=== PATIENT | female | born 1980 | race Two or more races ===

== ENCOUNTER 2019-12-17 17:19 | Inpatient (IN) | payer OTHER ==
[~2019-12-17 17:19] MED LIST: Bupivacaine 0.25% 10 ML SDV ONE
[2019-12-17] MEDS ORDERED: Sodium Chloride 0.9% 10 ML Syringe FLUSH PRN (17:49)
[2019-12-17] MEDS ORDERED: Ondansetron 4 MG/2 ML SDV IVPUSH PRN (17:49)
[2019-12-17] MEDS ORDERED: Oxytocin/Lactated Ringers 10 UNIT/1,000 ML BAG IV SCH ×2 (18:00)
[2019-12-17] MEDS: Lactated Ringers 1,000 ML IV SCH ×4 (18:35→23:43)
[2019-12-17] MEDS ORDERED: ePHEDrine 50 MG/ML SDV IVPUSH PRN (19:08)
[2019-12-17] MEDS ORDERED: diphenhydrAMINE 50 MG/ML SDV IVPUSH PRN (19:08)
[2019-12-17] MEDS ORDERED: Bupivacaine/fentaNYL/NS 100 ML Bag EPIDUR PRN (19:08)
[2019-12-17] MEDS ORDERED: fentaNYL 100 MCG/2 ML SDV EPIDUR PRN (19:08)
--- NOTE | 2019-12-17 19:54 | PCM.PREANE ---
Preanesthetic Assessment - Procedure Proposed Procedure: juan diego-- speaks little turkmen. 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 Consent signed. Patient agrees - Anesthesia/Transfusion/Family Hx Anesthesia History: Prior Anesthesia Without Reaction Transfusion History: No Prior Transfusion(s) - Review of Systems General: No Symptoms Pulmonary: No Symptoms Cardiovascular: No Symptoms Gastrointestinal: Abdominal Pain (contractions) Neurological: No Symptoms Other: Reports: Diabetes (gestational) - Physical Assessment Vital Signs: Last Vital Signs Temp Pulse 83 12/17/19 17:38 Resp BP 121/72 12/17/19 17:38 Pulse Ox Height: 5 ft 2.5 in Weight: 73.482 kg ASA Class: 2 Mental Status: Alert & Oriented x3 Airway Class: Mallampati = 1 Dentition: Reports: Normal Dentition Thyro-Mental Finger Breadths: 3 Mouth Opening Finger Breadths: 3 ROM/Head Extension: Full Lungs: Clear to Auscultation, Normal Respiratory Effort Cardiovascular: Regular Rate, Regular Rhythm - Lab Values: Laboratory Last Values WBC 8.17 K/mm3 (3.98-10.04) 12/17/19 18:25 RBC 4.43 M/mm3 (3.98-5.22) 12/17/19 18:25 Hgb 12.2 gm/dl (11.2-15.7) 12/17/19 18:25 Hct 37.1 % (34.1-44.9) 12/17/19 18:25 MCV 83.7 fl (79.4-94.8) 12/17/19 18:25 MCH 27.5 pg (25.6-32.2) 12/17/19 18:25 MCHC 32.9 g/dl (32.2-35.5) 12/17/19 18:25 RDW Std Deviation 46.4 fL (36.4-46.3) H 12/17/19 18:25 Plt Count 196 K/mm3 (182-369) 12/17/19 18:25 MPV 10.1 fl (9.4-12.3) 12/17/19 18:25 Neut % (Auto) 73.8 % (34.0-71.1) H 12/17/19 18:25 Lymph % (Auto) 19.7 % (19.3-51.7) 03/10/20 18:25 Ballard % (Auto) 6.0 % (4.7-12.5) 12/17/19 18:25 Eos % (Auto) 0.2 (0.7-5.8) L 12/17/19 18:25 Baso % (Auto) 0.1 % (0.1-1.2) 12/17/19 18:25 Neut # (Auto) 6.02 K/mm3 (1.56-6.13) 12/17/19 18:25 Lymph # (Auto) 1.61 K/mm3 (1.18-3.74) 12/17/19 18:25 Ballard # (Auto) 0.49 K/mm3 (0.24-0.36) H 12/17/19 18:25 Eos # (Auto) 0.02 K/mm3 (0.04-0.36) L 12/17/19 18:25 Baso # (Auto) 0.01 K/mm3 (0.01-0.08) 12/17/19 18:25 - Allergies Allergies/Adverse Reactions: Allergies Allergy/AdvReac Type Severity Reaction Status Date / Time Penicillins Allergy Hives Verified 12/17/19 17:38 - Blood Blood Available: No - Acknowledgements Anesthesia Type Planned: Epidural Pt an Appropriate Candidate for the Planned Anesthesia: Yes Alternatives and Risks of Anesthesia Discussed w Pt/Guardian: Yes Pt/Guardian Understands and Agrees with Anesthesia Plan: Yes PreAnesthesia Questionnaire - Past Health History Medical/Surgical History: Denies Medical/Surgical History Cardiovascular History: Reports: None Respiratory History: Reports: None 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: Endocrine/Metabolic History: Reports: Diabetes, Gestational - Infectious Disease History Infectious Disease History: Reports: Chicken Pox - SUBSTANCE USE Smoking Status *Q: Never Smoker Second Hand Smoke Exposure: Yes Recreational Drug Use History: No - HOME MEDS Home Medications: Home Meds Pnv No.95/Ferrous Fum/Folic AC [ Vitamin Tablet] 1 tab PO DAILY [History] - CURRENT (IN HOUSE) MEDS Current Meds: Current Medications Diphenhydramine HCl (Benadryl) 25 mg IVPUSH Q6H PRN PRN Reason: pruritis Ephedrine Sulfate (Ephedrine Sulfate) 5 mg IVPUSH ASDIRECTED PRN PRN Reason: Hypotension Fentanyl (Sublimaze) 100 mcg EPIDUR Q3H PRN PRN Reason: Pain Fentanyl/Bupivacaine HCl (Fentanyl/Bupivacaine/Ns 2 Mcg-0.125% 100 Ml) 100 ml EPIDUR ASDIRECTED PRN PRN Reason: Pain Lactated Ringer's (Ringers, Lactated) 1,000 mls @ 100 mls/hr IV ASDIRECTED EARL Last Admin: 12/17/19 18:35 Dose: 500 mls/hr Oxytocin/Lactated Ringer's (Pitocin In Lr 10 Units/1,000 Ml) 10 unit in 1,000 mls @ 12 mls/hr IV TITRATE EARL; Protocol Oxytocin/Lactated Ringer's (Pitocin In Lr 10 Units/1,000 Ml) 10 unit in 1,000 mls @ 100 mls/hr IV .CONTINUOUS EARL Ondansetron HCl (Zofran) 4 mg IVPUSH Q4H PRN PRN Reason: Nausea/Vomiting Sodium Chloride (Saline Flush) 10 ml FLUSH ASDIRECTED PRN PRN Reason: Keep Vein Open
--- NOTE | 2019-12-17 21:41 | PCM.LDHP ---
L&D History of Present Illness - General Date of Service: 12/17/19 Admit Problem/Dx: Patient Status Order with Admit Dx/Problem 12/17/19 17:49 Patient Status [ADT] Routine Admission Diagnosis/Problem Admission Diagnosis/Problem - History of Present Illness Introduction:: 39 year old female at 37w5d seen in clinic for routine visit and complaining of "too much pain". NST reveals some irregular contractions. Cervix found to be 4 and then changed to 5 cm. Sent to labor and delivery in labor. PNC with myself complicated by A1GDM. 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: Endocrine/Metabolic History: Reports: Diabetes, Gestational - Infectious Disease History Infectious Disease History: Reports: Chicken Pox Social & Family History - Family History Family Medical History: Noncontributory - Tobacco Use Smoking Status *Q: Never Smoker Second Hand Smoke Exposure: Yes - Caffeine Use Caffeine Use: Reports: None - Recreational Drug Use Recreational Drug Use: No H&P Review of Systems - Review of Systems: Review Of Systems: See Below General: Reports: No Symptoms HEENT: Reports: No Symptoms Pulmonary: Reports: No Symptoms Cardiovascular: Reports: No Symptoms Gastrointestinal: Reports: No Symptoms Genitourinary: Reports: No Symptoms Musculoskeletal: Reports: No Symptoms Skin: Reports: No Symptoms Psychiatric: Reports: No Symptoms Neurological: Reports: No Symptoms Hematologic/Lymphatic: Reports: No Symptoms Immunologic: Reports: No Symptoms L&D Exam - Exam Exam: See Below - Vital Signs Vital Signs: Last Vital Signs Temp Pulse 83 12/17/19 17:38 Resp BP 121/72 12/17/19 17:38 Pulse Ox Weight: 73.482 kg - OB Specific Fundal Height In cm: 36 Contraction Intensity: Irritability Movement: Active Heart Rate (FHR) Variability: Moderate (6-25 bmp) Presentation: Vertex - Matias Score Matias Score Cervix Position: Midposition Matias Score Consistency: Soft Matias Score Effacement: 51-70% Matias Score Dilation: > 5 cm Matias Score 's Station: -2 Matias Score Total: 9 - Exam General: Alert, Oriented HEENT: PERRLA, Conjunctiva Clear, EACs Clear, EOMI, Hearing Intact, Mucosa Moist & Rosser, Nares Patent, Normal Nasal Septum, Posterior Pharynx Clear, TMs Clear Neck: Supple, Trachea Midline Lungs: Clear to Auscultation, Normal Respiratory Effort Cardiovascular: Regular Rate, Regular Rhythm GI/Abdominal Exam: Normal Bowel Sounds, Soft, Non-Tender, No Organomegaly, No Distention, No Abnormal Bruit, No Mass, Pelvis Stable Back Exam: Normal Inspection, Full Range of Motion Extremities: Normal Inspection, Normal Range of Motion, Non-Tender, No Pedal Edema, Normal Capillary Refill Skin: Warm, Dry, Intact Neurological: Cranial Nerves Intact, Reflexes Equal Bilateral Psychiatric: Alert, Normal Affect, Normal Mood - Patient Data Lab Results Last 24 hrs: Laboratory Results - last 24 hr 12/17/19 Range/Units 18:25 WBC 8.17 (3.98-10.04) K/mm3 RBC 4.43 (3.98-5.22) M/mm3 Hgb 12.2 (11.2-15.7) gm/dl Hct 37.1 (34.1-44.9) % MCV 83.7 (79.4-94.8) fl MCH 27.5 (25.6-32.2) pg MCHC 32.9 (32.2-35.5) g/dl RDW Std Deviation 46.4 H (36.4-46.3) fL Plt Count 196 (182-369) K/mm3 MPV 10.1 (9.4-12.3) fl Neut % (Auto) 73.8 H (34.0-71.1) % Lymph % (Auto) 19.7 (19.3-51.7) % [place] % (Auto) 6.0 (4.7-12.5) % Eos % (Auto) 0.2 L (0.7-5.8) Baso % (Auto) 0.1 (0.1-1.2) % Neut # (Auto) 6.02 (1.56-6.13) K/mm3 Lymph # (Auto) 1.61 (1.18-3.74) K/mm3 [place] # (Auto) 0.49 H (0.24-0.36) K/mm3 Eos # (Auto) 0.02 L (0.04-0.36) K/mm3 Baso # (Auto) 0.01 (0.01-0.08) K/mm3 Result Diagrams: 12/17/19 18:25 Problem List Initiated/Reviewed/Updated: Yes Orders Last 24hrs: Active Orders 24 hr Category Date Time Status Patient Status [ADT] Routine ADT 12/17/19 17:49 Active Activity as Tolerated [RC] PFP Care 12/17/19 17:49 Active Communication Order [RC] ASDIRECTED Care 12/17/19 17:49 Active Heart Tones [RC] ASDIRECTED Care 12/17/19 17:50 Active Non Stress Test [RC] PER UNIT ROUTINE Care 12/17/19 17:49 Active Notify Provider [RC] ASDIRECTED Care 12/17/19 19:09 Active Notify Provider [RC] PFP Care 12/17/19 17:49 Active Notify Provider [RC] PRN Care 12/17/19 17:49 Active Peripheral IV Care [RC] Q2HR Care 12/17/19 17:50 Active Vital Signs [RC] PER UNIT ROUTINE Care 12/17/19 17:49 Active Regular Diet [DIET] Diet 12/17/19 Dinner Active RAPID PLASMA REAGIN,RPR [CHEM] Routine Lab 12/17/19 18:25 Received TYPE AND SCREEN [BBK] Stat Lab 12/17/19 18:25 Received Bupivacaine/fentaNYL/NS [fentaNYL/Bupivacaine/NS 2 MCG- Med 12/17/19 19:08 Active 0.125% 100 ML] 100 ml EPIDUR ASDIRECTED PRN Lactated Ringers [Ringers, Lactated] 1,000 ml Med 12/17/19 18:00 Active IV ASDIRECTED Ondansetron [Zofran] Med 12/17/19 17:49 Active 4 mg IVPUSH Q4H PRN Oxytocin/Lactated Ringers [Pitocin in LR 10 Units/1,000 Med 12/17/19 18:00 Active ML] 10 unit in 1,000 ml IV .CONTINUOUS Oxytocin/Lactated Ringers [Pitocin in LR 10 Units/1,000 Med 12/17/19 18:00 Active ML] 10 unit in 1,000 ml IV TITRATE Sodium Chloride 0.9% [Saline Flush] Med 12/17/19 17:49 Active 10 ml FLUSH ASDIRECTED PRN diphenhydrAMINE [Benadryl] Med 12/17/19 19:08 Active 25 mg IVPUSH Q6H PRN ePHEDrine [ePHEDrine sulfate] Med 12/17/19 19:08 Active 5 mg IVPUSH ASDIRECTED PRN fentaNYL [Sublimaze] Med 12/17/19 19:08 Active 100 mcg EPIDUR Q3H PRN Electronic Heart Tones Ext w TOCO [WOMSER] Oth 12/17/19 17:49 Ordered Routine Electronic Heart Tones Internal [WOMSER] Per Unit Oth 12/17/19 17:49 Ordered Routine Peripheral IV Insertion Adult [OM.PC] Routine Oth 12/17/19 17:49 Ordered Resuscitation Status Routine Resus Stat 12/17/19 17:49 Ordered Medication Orders Diphenhydramine HCl (Benadryl) 25 mg IVPUSH Q6H PRN PRN Reason: pruritis Ephedrine Sulfate (Ephedrine Sulfate) 5 mg IVPUSH ASDIRECTED PRN PRN Reason: Hypotension Fentanyl (Sublimaze) 100 mcg EPIDUR Q3H PRN PRN Reason: Pain Last Admin: 12/17/19 19:51 Dose: 100 mcg Fentanyl/Bupivacaine HCl (Fentanyl/Bupivacaine/Ns 2 Mcg-0.125% 100 Ml) 100 ml EPIDUR ASDIRECTED PRN PRN Reason: Pain Last Admin: 12/17/19 19:52 Dose: 100 ml Lactated Ringer's (Ringers, Lactated) 1,000 mls @ 100 mls/hr IV ASDIRECTED EARL Last Admin: 12/17/19 20:28 Dose: 500 mls/hr Infusion: 12/17/19 20:28 Dose: 500 mls/hr Admin: 12/17/19 19:53 Dose: 500 mls/hr Infusion: 12/17/19 19:53 Dose: 500 mls/hr Admin: 12/17/19 18:35 Dose: 500 mls/hr Oxytocin/Lactated Ringer's (Pitocin In Lr 10 Units/1,000 Ml) 10 unit in 1,000 mls @ 12 mls/hr IV TITRATE EARL; Protocol Oxytocin/Lactated Ringer's (Pitocin In Lr 10 Units/1,000 Ml) 10 unit in 1,000 mls @ 100 mls/hr IV .CONTINUOUS EARL Ondansetron HCl (Zofran) 4 mg IVPUSH Q4H PRN PRN Reason: Nausea/Vomiting Sodium Chloride (Saline Flush) 10 ml FLUSH ASDIRECTED PRN PRN Reason: Keep Vein Open Assessment/Plan Comment:: Term labor. AROM clear fluid. Epidural prn.
--- NOTE | 2019-12-17 21:44 | PCM.SN ---
- Free Text/Narrative Note: Stage I - Patient presented from clinic in labor. AROM clear fluid. Progressed to complete with epidural anesthesia. Stage II - of viable female, weight 2650g, 8/9 APGARS at 2109. Head delivered in controlled manner over intact perineum. Body and shoulders without difficulty. To maternal abdomen. Cord clamped and cut. Positive cry. 3vc. Pitocin initiated. Stage III - of intact placenta. Small periurethral laceration repaired with 3-0 vicryl. Small perineal laceration repaired also with 3-0. EBL 300.
[2019-12-17] MEDS ORDERED: Benzocaine/Menthol 20%-0.5% Spray 56 GM Canister TOP PRN (22:36)
[2019-12-17] MEDS ORDERED: Ibuprofen 600 MG Tab PO PRN (22:36)
[2019-12-17] MEDS ORDERED: Witch Hazel Medicated Pads 40/Jar TOP PRN (22:36)
[2019-12-17] MEDS ORDERED: Docusate Sodium 100 MG Cap PO PRN (22:36)
[2019-12-18] MEDS ORDERED: Midazolam 1 MG/ML 5 ML SDV ONE
--- NOTE | 2019-12-18 07:48 | PCM48HPAN ---
Post Anesthesia Note - EVALUATION WITHIN 48HRS OF ANESTHETIC Vital Signs in Normal Range: Yes Patient Participated in Evaluation: Yes Respiratory Function Stable: Yes Airway Patent: Yes Cardiovascular Function Stable: Yes Hydration Status Stable: Yes Pain Control Satisfactory: Yes Nausea and Vomiting Control Satisfactory: Yes Mental Status Recovered: Yes Vital Signs: Last Vital Signs Temp 36.4 C 12/18/19 03:00 Pulse 87 12/18/19 03:00 Resp 18 12/18/19 03:00 BP 110/64 12/18/19 03:00 Pulse Ox 96 12/18/19 03:00
== END 2019-12-19 10:55 | disposition still patient (30) | DRG 807 ==
LOC: JD.OBCHECK 17:19 → JD.OB 17:19 → JD.OBCHECK 17:49 → JD.OB 17:49 → JD.MS 21:09 → OBSVTOIN 21:09 → JD.OB 12-18 12:30
PROVIDERS: ADMIT Obstetrics & Gynecology; ATTEND Obstetrics & Gynecology
PROC: 10E0XZZ Delivery of Products of Conception, External Approach (ICD-10-PCS; principal; 2019-12-17)
PROC: 10907ZC Drainage of Amniotic Fluid, Therapeutic from Products of Conception, Via Natural or Artificial Opening (ICD-10-PCS; 2019-12-17)
PROC: 0UQMXZZ Repair Vulva, External Approach (ICD-10-PCS; 2019-12-17)
PROC: 3E0R3BZ Introduction of Anesthetic Agent into Spinal Canal, Percutaneous Approach (ICD-10-PCS; 2019-12-17)
DX: O70.9 Perineal laceration during delivery, unspecified (principal); Z37.0 Single live birth; Z3A.37 37 weeks gestation of pregnancy
CPT/HCPCS: 36415; 51702; 59025; 59409; 82962; 85025; 86592; 86850; 86900; 86901; A9270-GY; J2250; J2590; J3010; J3490; J7120

== ENCOUNTER 2021-01-05 12:56 | Inpatient (IN) | payer SELFPAY ==
[2021-01-05] MEDS ORDERED: Oxytocin/Lactated Ringers 10 UNIT/1,000 ML BAG IV SCH ×2 (13:05→14:15)
[2021-01-05] MEDS ORDERED: Nalbuphine 10 MG/1 ML Vial IVPUSH ONE (13:39)
[2021-01-05] MEDS ORDERED: Acetaminophen 325 MG Tab PO PRN (14:00)
[2021-01-05] MEDS ORDERED: Docusate Sodium 100 MG Cap PO PRN (14:00)
[2021-01-05] MEDS ORDERED: Benzocaine/Menthol 20%-0.5% Spray 56 GM Canister TOP PRN (14:00)
[2021-01-05] MEDS ORDERED: Ibuprofen 600 MG Tab PO PRN (14:00)
[2021-01-05] MEDS ORDERED: Sodium Chloride 0.9% 10 ML Syringe FLUSH PRN (14:00)
[2021-01-05] MEDS ORDERED: Witch Hazel Medicated Pads 40/Jar TOP PRN (14:00)
--- NOTE | 2021-01-05 14:24 | PCM.LDHP ---
<CynthiaBrandie moorechaim - Last Filed: 01/07/21 10:08> L&D History of Present Illness - General Date of Service: 01/05/21 Admit Problem/Dx: Patient Status Order with Admit Dx/Problem 01/05/21 14:01 Patient Status [ADT] Routine Admission Diagnosis/Problem Admission Diagnosis/Problem Vaginal delivery Source of Information: Patient History Limitations: Reports: Language Barrier - History of Present Illness Introduction:: Marianna Leslie is a GBS unknown A+ with negative antibody screen and gestational diabetes G3 now P3003 40 year old female at 37-0 weeks gestation with an UMA of 01/26/21 by early US and LMP who underwent spontaneous home delivery at approximately 0950 [employer] (0850 MST) at her home. She called 911 at 0948 when her water broke; she reports that her contractions started approximately 10 minutes earlier. EMS arrived at 0958; the had already delivred by the patient's sister in law. EMS reported APGARs of 9 with one off for color. Placenta had not delivered. The patient was transferred to [facility], and Dr. Leigh was consulted. Dr. Leigh recommended gentle tractio n, pitocin and fundal massage to help deliver the placenta. Gentle traction and fundal massage were performed in the ED, without successful delivery of the placenta. The patient was then transferred to [place] for further evaluation and delivery of the placenta. Present Illness Comments:: Marianna Leslie is a GBS unknown A+ with negative antibody screen G3 now P3003 40 year old female at 37-0 weeks gestation with an UMA of 01/26/21 by early US and LMP who underwent spontaneous home delivery at approximately 0950 [address] [employer] (0850 MST) at her home with delivery of an intact placenta approximately 6 hours later at [facility]. Patient has received routine care with Dr. Leigh although she was late to establish care. She received the Tdap vaccine on 11/10/20; declined flu vaccine. OBGYN History G3 now P3003 03/31/2014: of a live male infant at 37w0d weighing 6 lbs (2722 g) "Diego Odena" 12/17/2019: of a live female at 37w6d weighing unknown "Mirna Odena" 01/05/2021: of a live female at 37w0d "[place]" labs: Blood type: A+ Antibody screen: Negative Rubella status: immune Hepatitis B surface antigen: negative Hepatitis C: negative RPR: negative HIV: negative Gonorrhea: Negative Chlamydia: negative Anatomy US: 08/19/20 Normal growth, RODRIGO, placental position, anatomy One hour glucose tolerance test: 155 Three hour glucose tolerance test: 78, 230, 149, 118 Second trimester hematocrit/hemoglobin: 11.4 Platelets: 158,000 GBS status: unknown - Related Data Allergies/Adverse Reactions: Allergies Allergy/AdvReac Type Severity Reaction Status Date / Time Penicillins Allergy Hives Verified 01/05/21 19:23 Home Medications: Home Meds Pnv No.95/Ferrous Fum/Folic AC [ Vitamin Tablet] 1 tab PO DAILY 12/17/19 [History] Acetaminophen [Tylenol] 650 mg PO Q6H PRN tablet 01/07/21 [Rx] Docusate Sodium [Colace] 100 mg PO BID PRN cap 01/07/21 [Rx] Ibuprofen [Motrin] 600 mg PO Q6H PRN tablet 01/07/21 [Rx] Past Medical History - Past Health History Medical/Surgical History: Denies Medical/Surgical History Cardiovascular History: Reports: None Respiratory History: Reports: None 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: Endocrine/Metabolic History: Reports: Diabetes, Gestational - Infectious Disease History Infectious Disease History: Reports: Chicken Pox Social & Family History - Family History Family Medical History: No Pertinent Family History - Caffeine Use Caffeine Use: Reports: None H&P Review of Systems - Review of Systems: General: Reports: No Symptoms Pulmonary: Reports: No Symptoms Cardiovascular: Reports: No Symptoms Gastrointestinal: Reports: No Symptoms Genitourinary: Reports: No Symptoms Musculoskeletal: Reports: No Symptoms Skin: Reports: No Symptoms L&D Exam - Exam Exam: See Below - Exam General: Alert, Oriented Lungs: Clear to Auscultation, Normal Respiratory Effort Cardiovascular: Regular Rate, Regular Rhythm GI/Abdominal Exam: Normal Bowel Sounds, Soft Genitourinary: Other (Noted intact attached umbilical cord extruding from the introitus. The end of the cord was secured with a twist tie. No active bleeding seen ) Skin: Warm, Dry, Intact Psychiatric: Alert, Normal Affect, Normal Mood - Patient Data Result Diagrams: 01/05/21 14:20 - Problem List (1) 37 weeks gestation of SNOMED Code(s): 31694324 ICD Code: Z3A.37 - 37 WEEKS GESTATION OF Status: Acute (2) Status post delivery of infant SNOMED Code(s): 409899903, 115573572 ICD Code: [id number] - Status: Acute (3) Late care SNOMED Code(s): 332677796, 159323800 ICD Code: O09.30 - SUPRVSN OF PREG W INSUFFICIENT ANTENAT CARE, UNSP TRIMESTER Status: Acute (4) Sinhala speaking patient SNOMED Code(s): 223742288 ICD Code: [id number] - Status: Acute (5) Language barrier SNOMED Code(s): 451914003, 307750295 ICD Code: Z78.9 - OTHER SPECIFIED HEALTH STATUS Status: Acute (6) Retained placenta or membranes without hemorrhage SNOMED Code(s): 847636426 ICD Code: O73.0 - RETAINED PLACENTA WITHOUT HEMORRHAGE Status: Acute Problem List Initiated/Reviewed/Updated: Yes Orders Last 24hrs: Active Orders 24 hr Category Date Time Status Patient Status [ADT] Routine ADT 01/05/21 14:01 Active Activity as Tolerated [RC] PER UNIT ROUTINE Care 01/05/21 14:01 Active Notify Provider [RC] PRN Care 01/05/21 14:06 Active Peripheral IV Care [RC] . DIRECTED Care 01/05/21 14:04 Active Up ad Guerda [RC] ASDIRECTED Care 01/05/21 14:00 Active Vital Signs [RC] ASDIRECTED Care 01/05/21 14:01 Active Regular Diet [DIET] Diet 01/05/21 Lunch Active CBC WITH AUTO DIFF [HEME] Stat Lab 01/05/21 14:06 Ordered CORONAVIRUS COVID-19 GHADA [MOLEC] Stat Lab 01/05/21 14:09 Ordered HEPATITIS C ANTIBODY [CHEM] Stat Lab 01/05/21 14:06 Ordered RAPID PLASMA REAGIN,RPR [CHEM] Routine Lab 01/05/21 14:06 Ordered Acetaminophen [TylenoL] Med 01/05/21 14:00 Active 650 mg PO Q4H PRN Benzocaine/Menthol [Dermoplast Pain Relief Wentworth] Med 01/05/21 14:00 Active See Dose Instructions TOP ASDIRECTED PRN Docusate Sodium [Colace] Med 01/05/21 14:00 Active 100 mg PO BID PRN Ibuprofen [Motrin] Med 01/05/21 14:00 Active 600 mg PO Q6H PRN Oxytocin/Lactated Ringers [Pitocin in LR 10 Units/1,000 Med 01/05/21 14:15 Active ML] 10 unit in 1,000 ml IV .CONTINUOUS Oxytocin/Lactated Ringers [Pitocin in LR 10 Units/1,000 Med 01/05/21 13:05 Active ML] 10 unit in 1,000 ml IV CONTINUOUS Vit with Ca/FA/Iron [ Plus Iron] Med 01/06/21 09:00 Active 1 each PO DAILY Sodium Chloride 0.9% [Saline Flush] Med 01/05/21 14:00 Active 10 ml FLUSH ASDIRECTED PRN witch Melissa [Tucks] Med 01/05/21 14:00 Active 1 pad TOP ASDIRECTED PRN Assess Lochia [WOMSER] Per Unit Routine Oth 01/05/21 14:01 Ordered Assess Uterine Involution [WOMSER] Per Unit Routine Oth 01/05/21 14:01 Ordered Breast Pump [WOMSER] Per Unit Routine Oth 01/05/21 14:01 Ordered Heat Therapy [OM.PC] PRN Oth 01/05/21 14:15 Ordered Heat Therapy [OM.PC] PRN Oth 01/06/21 14:15 Ordered Medication Administration Instruction [OM.PC] Routine Oth 01/05/21 14:01 Ordered Perineal Care [OM.PC] Per Unit Routine Oth 01/05/21 14:01 Ordered Peripheral IV Insertion Adult [OM.PC] Routine Oth 01/05/21 14:00 Ordered Sitz Bath [OM.PC] Per Unit Routine Oth 01/05/21 14:01 Ordered Resuscitation Status Routine Resus Stat 01/05/21 14:00 Ordered Medication Orders Acetaminophen (Acetaminophen 325 Mg Tab) 650 mg PO Q4H PRN PRN Reason: mild pain or fever Benzocaine/Menthol (Benzocaine/Menthol 20%-0.5% Wentworth 56 Gm Canister) 0 gm TOP ASDIRECTED PRN PRN Reason: Perineal Comfort Measure Docusate Sodium (Docusate Sodium 100 Mg Cap) 100 mg PO BID PRN PRN Reason: Constipation Oxytocin/Lactated Ringer's (Pitocin In Lr 10 Units/1,000 Ml) 10 unit in 1,000 mls @ 500 mls/hr IV CONTINUOUS EARL; Protocol Oxytocin/Lactated Ringer's (Pitocin In Lr 10 Units/1,000 Ml) 10 unit in 1,000 mls @ 100 mls/hr IV .CONTINUOUS EARL Last Admin: 01/05/21 13:07 Dose: 500 mls/hr Documented by: LESLI Ibuprofen (Ibuprofen 600 Mg Tab) 600 mg PO Q6H PRN PRN Reason: Mild pain or fever Prenat Multivit/General Service Officer/Iron/Folic Ac ( Multivitamin With Calcium/Folic Acid/Iron Tab) 1 each PO DAILY EARL Sodium Chloride (Sodium Chloride 0.9% 10 Ml Syringe) 10 ml FLUSH ASDIRECTED PRN PRN Reason: Keep Vein Open Witch Melissa (Witch Melissa Medicated Pads 40/Jar) 1 pad TOP ASDIRECTED PRN PRN Reason: Perineal Comfort Measure Assessment/Plan Comment:: Marianna Leslie is a GBS unknown A+ with negative antibody screen G3 now P3003 40 year old female at 37-0 weeks gestation with an UMA of 01/26/21 by early US and LMP who underwent spontaneous home delivery at approximately 0950 [address] (0850 MST) at her home. She called 911 at 0948 when her water broke; she reports that her contractions started approximately 10 minutes earlier. EMS arrived at 0958; the had already delivred by the patient's sister in law. EMS reported APGARs of 9 with one off for color. Placenta had not delivered. The patient was transferred to [facility], and Dr. Leigh was consulted. Dr. Leigh recommended gentle traction, pitocin and fundal massage to help deliver the placenta. Gentle traction and fundal massage were performed in the E D, without successful delivery of the placenta. The patient was then transferred to [place] for further evaluation and delivery of the placenta. She reported contractions approximately every 10 minutes. Pitocin was started, and the patient was given Nubain for pain management. Visual inspection demonstrated an umbilical cord protruding from the vagina. With gentle traction, the placenta was delivered. Placenta was intact with three vessel cord. Fundal massage determined a firm uterus. Vaginal bleeding was minimal. 1. Unintended delivery at home with retained placenta - placenta delivered approximately 6 hours following delivery of the infant. Patient remained afebrile 2. GBS unknown 3. A+ with negative antibody screen 4. Rubella immune 5. Activity as tolerated 6. Regular diet 7. Plans to breastfeed 8. Monitor for signs of endometritis, including fever 9. Anticipate discharge in 24-48 hours pending rod finisher's recommendations. <ReeseSandra Goodman - Last Filed: 01/14/21 08:37> L&D History of Present Illness - General Admit Problem/Dx: Patient Status Order with Admit Dx/Problem 01/05/21 14:01 Patient Status [ADT] Routine Admission Diagnosis/Problem Admission Diagnosis/Problem Vaginal delivery Source of Information: Patient History Limitations: Reports: Language Barrier H&P Review of Systems - Review of Systems: Review Of Systems: Comprehensive ROS is negative, except as noted in HPI. L&D Exam - Exam Exam: See Below - Vital Signs Vital Signs: Last Vital Signs Temp 36.1 C 01/07/21 08:20 Pulse 89 01/07/21 08:20 Resp 14 01/07/21 08:20 BP 124/76 01/07/21 08:20 Pulse Ox 98 01/07/21 08:20 - Exam General: Alert, Oriented Lungs: Clear to Auscultation, Normal Respiratory Effort Cardiovascular: Regular Rate, Regular Rhythm GI/Abdominal Exam: Normal Bowel Sounds, Soft Genitourinary: Other Skin: Warm, Dry, Intact Psychiatric: Alert, Normal Affect, Normal Mood - Patient Data Result Diagrams: 01/05/21 14:20 Problem List Initiated/Reviewed/Updated: Yes
[2021-01-06] MEDS ORDERED: Prenatal Multivitamin with Calcium/Folic Acid/Iron Tab PO SCH (09:00)
--- NOTE | 2021-01-06 10:59 | PCM.PNPP ---
- General Info Date of Service: 01/06/21 Functional Status: Reports: Pain Controlled - Review of Systems General: Reports: No Symptoms HEENT: Reports: No Symptoms Pulmonary: Reports: No Symptoms Cardiovascular: Reports: No Symptoms Gastrointestinal: Reports: No Symptoms Genitourinary: Reports: No Symptoms Musculoskeletal: Reports: No Symptoms Skin: Reports: No Symptoms Neurological: Reports: No Symptoms Psychiatric: Reports: No Symptoms - General Info Date of Service: 01/06/21 - Patient Data Vital Signs - Most Recent: Last Vital Signs Temp 36.3 C 01/06/21 09:10 Pulse 87 01/06/21 09:10 Resp 14 01/06/21 09:10 BP 113/67 01/06/21 09:10 Pulse Ox 96 01/06/21 09:10 Weight - Most Recent: 75.75 kg Lab Results - Last 24 Hours: Laboratory Results - last 24 hr 01/05/21 Range/Units 14:20 WBC 8.87 (3.98-10.04) K/mm3 RBC 4.03 (3.98-5.22) M/mm3 Hgb 10.5 L D (11.2-15.7) gm/dl Hct 32.5 L (34.1-44.9) % MCV 80.6 D (79.4-94.8) fl MCH 26.1 (25.6-32.2) pg MCHC 32.3 (32.2-35.5) g/dl RDW Std Deviation 43.6 (36.4-46.3) fL Plt Count 165 L (182-369) K/mm3 MPV 10.3 (9.4-12.3) fl Neut % (Auto) 82.1 H (34.0-71.1) % Lymph % (Auto) 13.4 L (19.3-51.7) % Gordon % (Auto) 4.2 L (4.7-12.5) % Eos % (Auto) 0 L (0.7-5.8) Baso % (Auto) 0.0 L (0.1-1.2) % Neut # (Auto) 7.28 H (1.56-6.13) K/mm3 Lymph # (Auto) 1.19 (1.18-3.74) K/mm3 Gordon # (Auto) 0.37 H (0.24-0.36) K/mm3 Eos # (Auto) 0.00 L (0.04-0.36) K/mm3 Baso # (Auto) 0.00 L (0.01-0.08) K/mm3 Med Orders - Current: Current Medications Acetaminophen (Acetaminophen 325 Mg Tab) 650 mg PO Q4H PRN PRN Reason: mild pain or fever Benzocaine/Menthol (Benzocaine/Menthol 20%-0.5% [place] 56 Gm Canister) 0 gm TOP ASDIRECTED PRN PRN Reason: Perineal Comfort Measure Docusate Sodium (Docusate Sodium 100 Mg Cap) 100 mg PO BID PRN PRN Reason: Constipation Oxytocin/Lactated Ringer's (Pitocin In Lr 10 Units/1,000 Ml) 10 unit in 1,000 mls @ 500 mls/hr IV CONTINUOUS EARL; Protocol Oxytocin/Lactated Ringer's (Pitocin In Lr 10 Units/1,000 Ml) 10 unit in 1,000 mls @ 100 mls/hr IV .CONTINUOUS EARL Last Admin: 01/05/21 13:07 Dose: 500 mls/hr Documented by: Ibuprofen (Ibuprofen 600 Mg Tab) 600 mg PO Q6H PRN PRN Reason: Mild pain or fever Prenat Multivit/Manager Applied/Iron/Folic Ac ( Multivitamin With Calcium/Folic Acid/Iron Tab) 1 each PO DAILY EARL Sodium Chloride (Sodium Chloride 0.9% 10 Ml Syringe) 10 ml FLUSH ASDIRECTED PRN PRN Reason: Keep Vein Open Witch Melissa (Witch Melissa Medicated Pads 40/Jar) 1 pad TOP ASDIRECTED PRN PRN Reason: Perineal Comfort Measure Discontinued Medications Nalbuphine HCl (Nalbuphine 10 Mg/1 Ml Vial) 10 mg IVPUSH ONETIME ONE Stop: 01/05/21 13:40 Last Admin: 01/05/21 13:46 Dose: 10 mg Documented by: - Infant Interaction Support Person: - Recovery Exam Fundal Tone: Firm Fundal Level: 1 Fingerbreadths Below Umbilicus Fundal Placement: Midline Lochia Amount: Small Lochia Color: Rubra/Red Perineum Description: Intact, Minimal Bruising/Swelling Episiotomy/Laceration: None Bladder Status: Voiding Urinary Elimination: Voided - Exam General: Alert, Oriented HEENT: Pupils Equal Neck: Supple Lungs: Clear to Auscultation, Normal Respiratory Effort Cardiovascular: Regular Rate, Regular Rhythm GI/Abdominal Exam: Normal Bowel Sounds, Soft, Non-Tender, No Organomegaly, No Distention, No Abnormal Bruit, No Mass, Pelvis Stable Extremities: Normal Inspection, Normal Range of Motion, Non-Tender, No Pedal Edema, Normal Capillary Refill Skin: Warm, Dry, Intact Neurological: No New Focal Deficit Psy/Mental Status: Alert, Normal Affect, Normal Mood - Problem List Review Problem List Initiated/Reviewed/Updated: Yes - My Orders Last 24 Hours: My Active Orders 01/05/21 Lunch Regular Diet [DIET] 01/05/21 13:05 Oxytocin/Lactated Ringers [Pitocin in LR 10 Units/1,000 ML] 10 unit in 1,000 ml IV CONTINUOUS 01/05/21 14:00 Up ad Guerda [RC] ASDIRECTED Acetaminophen [TylenoL] 650 mg PO Q4H PRN Benzocaine/Menthol [Dermoplast Pain Relief [place]] See Dose Instructions TOP ASDIRECTED PRN Docusate Sodium [Colace] 100 mg PO BID PRN Ibuprofen [Motrin] 600 mg PO Q6H PRN Sodium Chloride 0.9% [Saline Flush] 10 ml FLUSH ASDIRECTED PRN witch Melissa [Tucks] 1 pad TOP ASDIRECTED PRN Peripheral IV Insertion Adult [OM.PC] Routine Resuscitation Status Routine 01/05/21 14:01 Patient Status [ADT] Routine Activity as Tolerated [RC] PER UNIT ROUTINE Vital Signs [RC] ,,, Assess Lochia [WOMSER] Per Unit Routine Assess Uterine Involution [WOMSER] Per Unit Routine Breast Pump [WOMSER] Per Unit Routine Medication Administration Instruction [OM.PC] Routine Perineal Care [OM.PC] Per Unit Routine Sitz Bath [OM.PC] Per Unit Routine 01/05/21 14:06 Notify Provider [RC] PRN 01/05/21 14:15 Oxytocin/Lactated Ringers [Pitocin in LR 10 Units/1,000 ML] 10 unit in 1,000 ml IV .CONTINUOUS Heat Therapy [OM.PC] PRN 01/05/21 14:20 HEP C VIRUS AB [REF] Stat RAPID PLASMA REAGIN,RPR [CHEM] Routine 01/06/21 09:00 Vit with Ca/FA/Iron [ Plus Iron] 1 each PO DAILY 01/06/21 14:15 Heat Therapy [OM.PC] PRN - Assessment Assessment:: PPD1 after unintentional home delivery and ambulance transfer at 37 weeks. 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 She called 911 at 0948 when her water broke; she reports that her contractions started approximately 10 minutes earlier. EMS arrived at 0958; the infant had already delivred by the patient's sister in law. EMS reported APGARs of 9 with one off for color. Placenta had not delivered. The patient was transferred to [facility], and Dr. Leigh was consulted. Dr. Leigh recommended gentle traction, pitocin and fundal massage to help deliver the placenta. Gentle traction and fundal massage were performed in the ED, without successful delivery of the placenta. The patient was then tr ansferred to [place] for further evaluation and delivery of the placenta. She reported contractions approximately every 10 minutes. Pitocin was started, and the patient was given Nubain for pain management. Visual inspection demonstrated an umbilical cord protruding from the vagina. With gentle traction, the placenta was delivered. Placenta was intact with three vessel cord. Fundal massage determined a firm uterus. Vaginal bleeding was minimal. 1. Unintended delivery at home with retained placenta - placenta delivered approximately 6 hours following delivery of the infant. Patient remained afebrile 2. GBS unknown 3. A+ with negative antibody screen 4. Rubella immune 5. Activity as tolerated 6. Regular diet 7. Plans to breastfeed 8. Monitor for signs of endometritis, including fever 9. Anticipate discharge in 24-48 hours pending product safety expert's recommendations.
--- NOTE | 2021-01-07 08:42 | PCM.DCSUM1 ---
<CynthiaBrandie moorechaim - Last Filed: 01/07/21 10:09> Discharge Summary - Hospital Course HPI Initial Comments: Patient is doing well today. Reports minimal lochia, has been ambulating and using the bathroom. She has been both breast and bottle feeding and this is going well. She has not needed pain medication. She denies any fever or chills. 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 She called 911 at 0948 when her water broke; she reports that her contractions started approximately 10 minutes earlier. EMS arrived at 0958; the had already delivred by the patient's sister in law. EMS reported APGARs of 9 with one off for color. Placenta had not delivered. The patient was transferred to [facility], and Dr. Leigh was consulted. Dr. Leigh recommended gentle traction, pitocin and fundal massage to help deliver the placenta. Gentle traction and fundal massage were performed in the ED, without successful delivery of the placenta. The patient was then transferred to [place] for further evaluation and the placenta was delivered approximately six hours following delivery of the with gentle traction and pitocin. The placenta was intact with three vessel cord. Mother and baby stable to recovery. Hospital course uneventful, patient remained afebrile with stable vital signs. - Discharge Data Discharge Date: 01/07/21 Discharge Disposition: Home, Self-Care 01 Condition: Good - Referral to Home Health Primary Care Physician: Sandra Leigh MD - Discharge Diagnosis/Problem(s) (1) 37 weeks gestation of SNOMED Code(s): 64727599 ICD Code: Z3A.37 - 37 WEEKS GESTATION OF Status: Acute Current Visit: Yes (2) Status post delivery of SNOMED Code(s): 216811433, 451573876 ICD Code: [id number] - Status: Acute Current Visit: Yes (3) Late care SNOMED Code(s): 934432772, 046012167 ICD Code: O09.30 - SUPRVSN OF PREG W INSUFFICIENT ANTENAT CARE, UNSP TRIMESTER Status: Acute Current Visit: Yes (4) Setswana speaking patient SNOMED Code(s): 353641924 ICD Code: OXX5375 - Status: Acute Current Visit: Yes (5) Language barrier SNOMED Code(s): 352530468, 145216910 ICD Code: Z78.9 - OTHER SPECIFIED HEALTH STATUS Status: Acute Current Visit: Yes (6) Retained placenta or membranes without hemorrhage SNOMED Code(s): 179695398 ICD Code: O73.0 - RETAINED PLACENTA WITHOUT HEMORRHAGE Status: Acute Current Visit: Yes - Patient Summary/Data Recommended Follow-up Testing/Procedures: Follow up with Dr. Leigh in [place] Hospital Course: Unremarkable - Patient Instructions Diet: Regular Diet as Tolerated Activity: As Tolerated Activity, Other: Pelvic rest Driving: May Drive Today Showering/Bathing: May Shower Notify Provider of: Fever, Increased Pain, Drainage, Nausea and/or Vomiting - Discharge Plan *PRESCRIPTION DRUG MONITORING PROGRAM REVIEWED*: No *COPY OF PRESCRIPTION DRUG MONITORING REPORT IN PATIENT DEYA: No Home Medications: Home Meds Pnv No.95/Ferrous Fum/Folic AC [ Vitamin Tablet] 1 tab PO DAILY 12/17/19 [History] Acetaminophen [Tylenol] 650 mg PO Q6H PRN tablet 01/07/21 [Rx] Docusate Sodium [Colace] 100 mg PO BID PRN cap 01/07/21 [Rx] Ibuprofen [Motrin] 600 mg PO Q6H PRN tablet 01/07/21 [Rx] Patient Handouts: Care After Vaginal Delivery, and Cracked or Sore Nipples Referrals: Sandra Leigh MD [Primary Care Provider] - - Discharge Summary/Plan Comment DC Time >30 min.: No - Patient Data Vitals - Most Recent: Last Vital Signs Temp 97.0 F 01/07/21 03:27 Pulse 78 01/07/21 03:27 Resp 16 01/07/21 03:27 BP 113/68 01/07/21 03:27 Pulse Ox 97 01/07/21 03:27 Weight - Most Recent: 75.75 kg Lab Results - Last 24 hrs: Laboratory Results - last 24 hr 01/05/21 Range/Units 14:20 RPR Non-reactive (NONREACTIVE) Med Orders - Current: Current Medications Acetaminophen (Acetaminophen 325 Mg Tab) 650 mg PO Q4H PRN PRN Reason: mild pain or fever Benzocaine/Menthol (Benzocaine/Menthol 20%-0.5% [place] 56 Gm Canister) 0 gm TOP ASDIRECTED PRN PRN Reason: Perineal Comfort Measure Docusate Sodium (Docusate Sodium 100 Mg Cap) 100 mg PO BID PRN PRN Reason: Constipation Oxytocin/Lactated Ringer's (Pitocin In Lr 10 Units/1,000 Ml) 10 unit in 1,000 mls @ 500 mls/hr IV CONTINUOUS EARL; Protocol Oxytocin/Lactated Ringer's (Pitocin In Lr 10 Units/1,000 Ml) 10 unit in 1,000 mls @ 100 mls/hr IV .CONTINUOUS EARL Last Admin: 01/05/21 13:07 Dose: 500 mls/hr Documented by: Ibuprofen (Ibuprofen 600 Mg Tab) 600 mg PO Q6H PRN PRN Reason: Mild pain or fever Prenat Multivit/Hart/Iron/Folic Ac ( Multivitamin With Calcium/Folic Acid/Iron Tab) 1 each PO DAILY EARL Last Admin: 01/06/21 19:39 Dose: Not Given Documented by: Sodium Chloride (Sodium Chloride 0.9% 10 Ml Syringe) 10 ml FLUSH ASDIRECTED PRN PRN Reason: Keep Vein Open Witch Melissa (Witch Melissa Medicated Pads 40/Jar) 1 pad TOP ASDIRECTED PRN PRN Reason: Perineal Comfort Measure Discontinued Medications Nalbuphine HCl (Nalbuphine 10 Mg/1 Ml Vial) 10 mg IVPUSH ONETIME ONE Stop: 01/05/21 13:40 Last Admin: 01/05/21 13:46 Dose: 10 mg Documented by: <Vinnie Lunsford - Last Filed: 01/07/21 11:27> Discharge Summary - Hospital Course HPI Initial Comments: I have seen and evaluated the patient with the student and agree with her assessment and plan. Patient is PPD #2 following precipitous delivery at home with retained placenta that was removed after being transferred from the emergency department in [place] to [facility]. She was GBS unknown and infant was monitored for several days to reduce likelihood of early GBS sepsis. Patient is meeting milestones and is to be discharged home today. Vinnie Lunsford MD 11:27 AM 01/07/2021 - Referral to Home Health Primary Care Physician: Sandra Leigh MD - Patient Data Vitals - Most Recent: Last Vital Signs Temp 36.1 C 01/07/21 08:20 Pulse 89 01/07/21 08:20 Resp 14 01/07/21 08:20 BP 124/76 01/07/21 08:20 Pulse Ox 98 01/07/21 08:20 I&O - Last 24 hours: Intake & Output 01/06/21 01/07/21 01/07/21 22:59 06:59 14:59 Intake Total 300 Balance 300 Lab Results - Last 24 hrs: Laboratory Results - last 24 hr 01/05/21 Range/Units 14:20 RPR Non-reactive (NONREACTIVE) Med Orders - Current: Current Medications Acetaminophen (Acetaminophen 325 Mg Tab) 650 mg PO Q4H PRN PRN Reason: mild pain or fever Benzocaine/Menthol (Benzocaine/Menthol 20%-0.5% [place] 56 Gm Canister) 0 gm TOP ASDIRECTED PRN PRN Reason: Perineal Comfort Measure Docusate Sodium (Docusate Sodium 100 Mg Cap) 100 mg PO BID PRN PRN Reason: Constipation Oxytocin/Lactated Ringer's (Pitocin In Lr 10 Units/1,000 Ml) 10 unit in 1,000 mls @ 500 mls/hr IV CONTINUOUS EARL; Protocol Oxytocin/Lactated Ringer's (Pitocin In Lr 10 Units/1,000 Ml) 10 unit in 1,000 mls @ 100 mls/hr IV .CONTINUOUS EARL Last Admin: 01/05/21 13:07 Dose: 500 mls/hr Documented by: Ibuprofen (Ibuprofen 600 Mg Tab) 600 mg PO Q6H PRN PRN Reason: Mild pain or fever Prenat Multivit/Hart/Iron/Folic Ac ( Multivitamin With Calcium/Folic Acid/Iron Tab) 1 each PO DAILY EARL Last Admin: 01/06/21 19:39 Dose: Not Given Documented by: Sodium Chloride (Sodium Chloride 0.9% 10 Ml Syringe) 10 ml FLUSH ASDIRECTED PRN PRN Reason: Keep Vein Open Witch Melissa (Witch Melissa Medicated Pads 40/Jar) 1 pad TOP ASDIRECTED PRN PRN Reason: Perineal Comfort Measure Discontinued Medications Nalbuphine HCl (Nalbuphine 10 Mg/1 Ml Vial) 10 mg IVPUSH ONETIME ONE Stop: 01/05/21 13:40 Last Admin: 01/05/21 13:46 Dose: 10 mg Documented by:
== END 2021-01-07 11:13 | disposition home or self-care (01) | DRG 807 ==
LOC: JD.OBCHECK 12:56 → JD.OB 12:57
PROVIDERS: ADMIT Obstetrics & Gynecology; ATTEND Obstetrics & Gynecology
PROC: 10E0XZZ Delivery of Products of Conception, External Approach (ICD-10-PCS; principal; 2021-01-05)
DX: O62.3 Precipitate labor (principal); Z37.0 Single live birth; O73.0 Retained placenta without hemorrhage; Z3A.37 37 weeks gestation of pregnancy; Z88.0 Allergy status to penicillin
CPT/HCPCS: 36415; 59414; 85025; 86592; 86803; J2300; J2590